=== PATIENT | female | born 1950 | race African-American/Black ===

== ENCOUNTER 2019-02-11 10:59 | Emergency (ER) | payer OTHER ==
[~2019-02-11] VITALS: Ht 162.6 cm; Wt 75.0 kg
[2019-02-11] MEDS ORDERED: ACETAMINOPHEN WITH CODEINE 300/30MG TABLET PO ONE (11:45)
[2019-02-11 12:12] LABS: HEMATOCRIT. 33.6 % (36.0-48.0); HEMOGLOBIN. 11.3 g/dL (12.0-16.0); MEAN CORPUSCULAR HEMOGLOBIN 33.7 pg (28.0-32.0); MEAN CORPUSCULAR VOLUME 100.2 fL (81.0-99.0); MEAN PLATELET VOLUME 7.3 fl (7.4-10.4); PLATELET 185 x1000/uL (130-400); RED BLOOD CELL COUNT 3.35 mill/uL (4.2-5.4); RED CELL DISTRIBUTION WIDTH 15.7 % (11.6-14.6)
[2019-02-11 12:20] LABS: CHLORIDE 108 mEq/L (98-107)
[2019-02-11 12:45] LABS: PLATELET ESTIMATE NORMAL
[2019-02-11 13:07] LABS: CLARITY URINE CLEAR (CLEAR); COLOR URINE YELLOW (YELLOW); KETONES URINE TRACE (NEGATIVE); LEUKOCYTE ESTERASE URINE NEGATIVE (NEGATIVE); NITRITE URINE NEGATIVE (NEGATIVE); OCCULT BLOOD URINE NEGATIVE (NEGATIVE); PH URINE 5.5 (4.5-8.0); PROTEIN URINE 2+ (NEGATIVE); SPECIFIC GRAVITY URINE 1.016 (1.005-1.030); UROBILINOGEN URINE 0.2 E.U./dL (0.2-1.0)
[2019-02-11] MEDS ORDERED: DEXTROSE 10% WATER 250 ML IV ONE (14:00)
[2019-02-11] MEDS ORDERED: DEXTROSE 50% WATER 50ML SYRINGE IV ONE (14:00)
[2019-02-11 15:35] VITALS: BP 125/69
== END 2019-02-11 16:03 | disposition short-term general hospital (02) ==
LOC: ER 10:59 → CANBEDREQ 14:49 → ER 16:03
DX: E11.649 Type 2 diabetes mellitus with hypoglycemia without coma (principal); T38.3X5A Adverse effect of insulin and oral hypoglycemic [antidiabetic] drugs, initial encounter; Z79.4 Long term (current) use of insulin; Z79.84 Long term (current) use of oral hypoglycemic drugs; Y92.89 Other specified places as the place of occurrence of the external cause
CPT/HCPCS: 36415; 71045; 72220; 81003; 82962; 93005; 96361; 96374; 99285